=== PATIENT | female | born 1985 | race Caucasian/White ===

== ENCOUNTER 2021-11-18 14:13 | Outpatient (CLI) | payer OTHER, SELFPAY ==
--- OUTSIDE RECORDS SUMMARY | 2021-11-18 14:17 | XMS_ITS | Clinical Summary ---
:1985 Author Organization [employer] [facility] [place] [address] Care Team Providers Name Role Phone Benita Strickland Erika Primary Care Provider Allergies Active Allergy Reactions Severity Noted Date Comments Penicillins *Unknown - Childhood Rxn Medications Medication Sig Dispensed Refills Start Date End Date Status INTRAUTERINE DEVICE 1 Device 0 03/01/2010 Active (IUD) liothyronine (Cytomel) Take 1 Tablet (5 30 Tablet 0 05/25/2020 Active 5 mcg mcg) by mouth tabletIndications: once daily. Chronic fatigue, Fibromyalgia Phentermine HCl 30 mg Take 1 Capsule 30 Capsule 0 05/25/2020 Active capsuleIndications: (30 mg) by mouth Chronic fatigue, once daily. Fibromyalgia Active Problems Problem Noted Date H/O eating disorder 03/28/2020 Overview: bulemia with restriction Fatigue 03/28/2020 Fibromyalgia 03/28/2020 Family history of breast cancer. Sister had breast can cer at age 33. 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 Dysmenorrhea 03/02/2009 IUD (intrauterine device) in place 11/17/2007 Overview: Paraguard IUD Resolved Problems Problem Noted Date Resolved Date Back pain 03/09/2009 01/24/2014 Generalized pain 03/02/2009 01/24/2014 Other acne 01/19/2007 01/24/2014 Syncope and collapse 01/24/2014 Encounters Date Type Specialty Care Team Description 11/17/2021 Travel 11/17/2021 Nurse Triage Benita Strickland, DO [facility] from Last 3 Months Immunizations Name Administration Dates Next Due Human Papilloma Virus Vaccine 07/20/2007, 04/02/2007, 200607/21/2007 Influenza, IIV3 (Age >=3 years) 01/25/2008 MMR 05/15/1995 Meningococcal Vaccine 02/18/2000 Pneumococcal Poly,23-Valent (Pneumovax) 12/22/2003 Td (Age >=7 Years) 05/14/2005 Tdap 01/19/2007 Tuberculin (PPD) 03/15/2014 Family History Medical History Relation Name Comments Alcohol/Drug Father Arthritis Father Hyperlipidemia Father Hypertension Father Heart Disease Maternal Grandmother Allergies Mother Other Mother depression/migra heike Psychiatric illness Mother depression/a nxiety Other Paternal Grandmother Glaucoma Asthma Sister Cancer-breast Sister december 2010 daly d double mastectomy Psychiatric illness Sister Relation Name Status Comments Father Alive Maternal Grandmother Mother Alive Paternal Grandmother Sister Alive Social History Tobacco Use Types Packs/Day Years Used Date Light Tobacco Smoker Cigarettes 0.25 2 Quit: 0 10/18/2019 Smokeless Tobacco: Never Used Tobacco Cessation: Counseling Given: Yes Comments: smoked age 14-17 years old spo ratically Alcohol Use Standard Drinks/Week Comments Yes 0.8 (1 standard drink = 0.6 oz pure alco hol) rare Alcohol Habits Answer Date Recorded How often do you have a drink containing alcohol? Monthly or less 12/21/2019 How many drinks containing alcohol do you have on a 1 or 2 12/21/2019 typical day when you are drinking? How often do you have six or more drinks on one Never 12/21/2019 occasion? 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 Obstetrics History Para Term AB IAB SAB Ectopic Multiple Living Live Births 1 0 0 0 1 0 0 0 0 0 Date Outcome GA Total Labor/2nd/3rd Weight Sex Delivery Anes PTL Tammy A 1 A5 Name Clin Labor AB Last Filed Vital Signs Vital Sign Reading Time Taken Comments Blood Pressure 136/82 04/05/2020 2:45 PM BUDGET REPORT CLERK Pulse 80 04/05/2020 2:45 PM BUDGET REPORT CLERK Temperature 36.9 ??C (98.4 ??F) 12/21/2019 4:39 PM BUDGET REPORT CLERK Respiratory Rate 16 03/20/2017 5:13 PM BUDGET REPORT CLERK Oxygen Saturation 100% 04/05/2020 2:45 PM BUDGET REPORT CLERK Inhaled Oxygen Concentration - - Weight 72.6 kg (160 lb) 04/05/2020 2:45 PM BUDGET REPORT CLERK Height 172 cm (5' 7.72) 04/05/2020 2:45 PM BUDGET REPORT CLERK Body Mass Index 24.53 04/05/2020 2:45 PM BUDGET REPORT CLERK Plan of Treatment Health Maintenance Due Date Last Done Comments COVID-19 vaccine series (#1) 03/28/1984 Hepatitis C screening for age 0809/25/2001 18-79 Pneumococcal series for age 19-64 12/21/2004 12/22/2003 (2 - PCV) Tetanus booster 01/19/2017 01/19/2007, 05/14/2005 BMI (ht and wt on same day) for 04/05/2021 04/05/2020, 11/0 05/2019, age 18+ 09/22/2016, Additional history exists Depression screening for age 12+ 04/05/2021 04/05/2020, 01/2017, 07/05/2015 Influenza for age 9-49 10/17/2021 01/25/2008 Pap test for age 21-65 04/05/2025 04/05/2020, 04/05/2020, 04/02/2017, Additional history exists Tdap Completed 01/19/2007 Results Not on filefrom Last 3 Months Insurance Payer Benefit Plan / Subscriber ID Effective Dates Phone Addre ss Type Group SINA ANDINO [place] [id number] 2014-Presen [address] [place] [address] [employer] [id number] 2020-Prese [address] AETNA AETNA PREFERREDONE nt [place] [address] MEDICA[place] MEDICAID [id number] 2014-Prese [address] [place] [address] [phone] (Home) [facility] [place]AY[facility]REE [place]URG[place] [id number] Jules Jonas Personal/Fami Self 1985 [phone] (Home) JAYSHREE FORDE [id number] [employer] Occ Other 02/16/1902 [phone] LAURITA [address] [facility] [address] (Home) [address] [place] [address] [email or web address] Occ Employer 02/17/2000 [phone] [facility] 0 (Home) [place] [address] Care Teams Palletiser Operator Relationship Specialty Start Date End Date Benita Strickland DO PCP - General Internal Medicine 03/23/20 [address] [place] [address]
[2021-11-18 22:32] LABS: Albumin* 4.2 g/dL (3.3-5.0); Chloride* 104 mmol/L (96-114); Sodium* 136 mmol/L (135-149)
[2021-11-18 22:33] LABS: Potassium* 3.9 mmol/L (3.6-5.1)
[2021-11-18 22:35] LABS: Alanine Aminotransferase* 15 U/L (4-35); Alkaline Phosphatase* 76 U/L (40-150); Aspartate Amino Transferase* 23 U/L (12-35); Bilirubin Total* 0.6 mg/dL (0.1-1.5); Blood Urea Nitrogen* 9 mg/dL (5-24); Calcium* 9.3 mg/dL (8.4-10.6); Carbon Dioxide* 25 mmol/L (20-32); Creatinine* 0.8 mg/dL (0.5-1.5); Estimated Glomerular Filt Rate 97 ml/min; Glucose* 87 mg/dL (60-115); Lipase* 71 U/L (23-300); Total Protein* 6.8 g/dL (6.0-8.3)
[2021-11-20 10:44] LABS: CRP, High Sensitivity 2.1 mg/L (<=3.0)
== END 2021-11-18 14:14 | disposition home or self-care (01) ==
PROVIDERS: PCP Family Medicine; Visit Provider Nurse Practitioner Family
DX: R10.9 Unspecified abdominal pain (principal)
CPT/HCPCS: 80053; 83690; 86141

== ENCOUNTER 2021-11-27 09:32 | Outpatient (CLI) | payer OTHER, SELFPAY ==
--- OUTSIDE RECORDS SUMMARY | 2021-11-27 09:43 | XMS_ITS | Clinical Summary ---
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 COVID-19 Exposure Response Date Recorded In the [...] Comments Blood Pressure 136/82 04/05/2020 2:45 PM WELDING SUPERVISOR Pulse 80 04/05/2020 2:45 PM WELDING SUPERVISOR Temperature 36.9 ??C (98.4 ??F) 12/21/2019 4:39 PM WELDING SUPERVISOR Respiratory Rate 16 03/20/2017 5:13 PM WELDING SUPERVISOR Oxygen Saturation 100% 04/05/2020 2:45 PM WELDING SUPERVISOR Inhaled Oxygen Concentration - - Weight 72.6 kg (160 lb) 04/05/2020 2:45 PM WELDING SUPERVISOR Height 172 cm (5' 7.72) 04/05/2020 2:45 PM WELDING SUPERVISOR Body Mass Index 24.53 04/05/2020 2:45 PM WELDING SUPERVISOR Plan of Treatment Health Maintenance Due Date Last Done Comments COVID-19 vaccine series (#1) 03/28/1984 Hepatitis C screening for age 0809/25/2001 18-79 Pneumococcal series for age 19-64 12/21/2004 12/22/2003 (2 - PCV) Tetanus booster 01/19/2017 01/19/2007, 05/14/2005 BMI (ht and wt on same day) for 04/05/2021 04/05/2020, 05/2019, age 18+ 09/22/2016, Additional history exists Depression screening for age 12+ 04/05/2021 04/05/2020, 01/2017, 07/05/2015 Influenza for age 9-49 10/17/2021 01/25/2008 Pap test for age 21-65 11/21/2026 11/21/2021, 04/05/2020, 04/05/2020, Additional history exists Tdap Completed 01/19/2007 Procedures Procedure Name Priority Date/Time Associated Diagnosis Comme nts LAB TRACKING EVENT Routine 11/21/2021 1:50 PM CDT HPV THIN PREP Routine 11/21/2021 1:50 PM Results for this CDT procedure are i n the results section. from Last 3 Months Results LAB TRACKING EVENT (11/21/2021 1:50 PM CDT) Specimen Anatomical Collection Method Collection Time Receive d Time (Source) Location / / Volume Laterality Other (Other) Client Collect / 11/21/2021 1:50 PM 08/2021 4:45 Unknown CDT PM CDT Darcy Estevez MD LAB BILL ONLY Performing Organization Address City/State/ZIP Code Phon e Number [facility] [address] [place] [address] LABORATORY-CENTRAL 2000 LABORATORY HPV HIGH RISK (11/21/2021 1:50 PM CDT) Analysis Performed At Patho logist Time Signature TYPE 16 Negative Negative 11/26/2021 [facility] [facility] [employer] [facility]) 2:58 PM CDT LABORATORY-[facility] TRAL LABORATORY TYPE 18 Negative Negative 11/26/2021 [facility] 2:58 PM CDT LABORATORY-[facility] TRAL LABORATORY OTHER HIGH Negative Negative 11/26/2021 [facility] RISK TYPES 2:58 PM CDT LABORATORY-[facility] TRAL LABORATORY Specimen Anatomical Collection Method Collection Time Receive d Time (Source) Location / / Volume Laterality Other 11/21/2021 1:50 PM 2 (Cervical/Vagina CDT 10:34 AM CD T l) Narrative [facility] LABORATORY-CENTRAL LABORAT ORY - 11/26/2021 2:58 PM CDT HPV types 16, 18, 31, 33, 35, 39, 45, 51, 52, 56, 58, 59, 66 and 68 DNA were undetectable or below the pre-set threshold. Methodology: Reanna Maribel 4800 HPV Test Darcy Estevez MD MICROBIOLOGY Performing Organization Address City/[facility]/ZIP Code Phon e Number [facility] [address] [place] [address] LABORATORY-CENTRAL 2000 LABORATORY from Last 3 Months Insurance Payer Benefit Plan / Subscriber ID Effective Dates Phone Addre ss Type Group [facility] [id number] 2014-Presen [address] [place] [address] [employer] [id number] 2020-Prese [address] AETNA [place] [address] MED[place]ID [place] [id number] 2014-Prese [address] [place] [address] [phone] (Home) [facility] [id number] Jules Jonas Personal/Fami Self 1985 [phone] (Home) JAYSHREE FODRE [address] [employer] Occ Other 02/16/1902 [phone] LA[address] [facility] [address] (Home) [address] [place] [address] [employer] Occ Employer 02/17/2000 [phone] [facility] 0 (Home) [place] [address] Care Teams Non Ferrous Material Handler Relationship Specialty Start Date End Date Benita Strickland, PCP - General Internal Medicine 03/23/20 100 [facility] JAYSHREE Arceo [address]
--- NOTE | 2021-11-27 09:45 | CRLHL7_ITS ---
For Patients: As a result of the Century Cures Act, medical imaging exams and procedure reports are released immediately into your electronic medical record. You may view this report before your referring provider. If you have questions, please contact your health care provider. INDICATION: abdomen pain COMPARISON: none TECHNIQUE: Real time zheng scale imaging and color Doppler analysis was performed of the right upper quadrant. FINDINGS: The patient`s liver is of normal size and has uniform echogenicity. There is a normal appearance of the hepatic IVC and proximal abdominal aorta. There is no evidence of ascites. The gallbladder is of normal size and there is no evidence of intraluminal stones or sludge. The gallbladder wall measures 1 mm in thickness. The common bile duct is of normal size and measures 3 mm in diameter at the level of the miranda hepatis. The pancreas appears normal. There is no evidence of a stone or hydronephrosis within the right kidney. The right kidney measures 11.5 cm in length. IMPRESSION: Normal right upper quadrant ultrasound. Dictated by Juan Luis Engel MD @ 11/27/2021 10:42:36 AM (Electronically Signed)
== END 2021-11-27 09:33 | disposition home or self-care (01) ==
LOC: US 09:32
PROVIDERS: PCP Family Medicine; Visit Provider Family Medicine
DX: R10.9 Unspecified abdominal pain (principal)
CPT/HCPCS: 76705

== ENCOUNTER 2022-06-18 11:26 | Outpatient (CLI) | payer OTHER, SELFPAY | END 2022-06-18 11:27 | disposition home or self-care (01) | LOC: NFLDREF 06-19 16:13 | PROVIDERS: PCP Family Medicine; Referring Provider Family Medicine; Visit Provider Family Medicine | DX: Z79.899 Other long term (current) drug therapy (principal); G40.209 Localization-related (focal) (partial) symptomatic epilepsy and epileptic syndromes with complex partial seizures, not intractable, without status epilepticus | CPT/HCPCS: 85027 ==

== ENCOUNTER 2023-06-08 13:02 | Outpatient (CLI) | payer OTHER, SELFPAY ==
--- OUTSIDE RECORDS SUMMARY | 2023-06-08 13:25 | XMS_ITS | Clinical Summary ---
Author Name Unknown Organization [facility] Address [place], [place] [address] Care Team Providers Care Full Stack Software Developer Name Role Phone Benita Strickland Primary Care Provider Allergies Active Allergy Reactions Criticality Noted Date Comments Penicillins *Unknown - Childhood Rxn Medications Medication Sig Dispensed Refills Start Date End Date Status INTRAUTERINE DEVICE (IUD) 1 Device 0 03/01/2010 Active liothyronine (Cytomel) 5 mcg tabletIndications:Ch ronic fatigue,Fibromyalgia Take 1 Tablet (5 mcg) by mouth once daily. 30 Tablet 05/25/2020 Active Phentermine HCl 30 mg capsuleIndications:C hronic fatigue,Fibromyalgia Take 1 Capsule (30 mg) by mouth once daily. 30 Capsule 05/25/2020 Active Active Problems Problem Noted Date Diagnosed Date H/O eating disorder 03/28/2020 Overview: bulemia with restriction Fatigue 03/28/2020 Fibromyalgia 03/28/2020 Family history of breast can cer. Sister had breast cancer at age 33. 02/28/2016 Leukopenia 01/22/2015 Nonintractable complex partial epilepsy 01/20/20 15 Dysmenorrhea 03/02/2009 IUD (intrauterine device) in place 11/17/2007 Overview: Paraguard IUD Resolved Problems Problem Noted Date Diagnosed Date Resolved Date Back pain 03/09/2009 01/24/2014 Generalized pain 03/02/2009 01/24/2014 Other acne 01/19/2007 01/24/2014 Syncope and collapse 014 Immunizations Name Administration Dates Next Due Human Papilloma Virus Vaccine 07/20/2007, 008,01/19/2007 07/21/2007 Influenza, IIV3 (Age >=3 years) 01/25/2008 MMR 05/15/1995 Meningococcal Vaccine 02/18/2000 Pneumococcal Poly,23-Valent (Pneumovax) 12/22/19 04 Td (Age >=7 Years) 05/14/2005 Tdap 01/19/2007 Tuberculin (PPD) 03/15/2014 Family History Medical History Relation Name Comments Alcohol/Drug Father Arthritis Father Hyperlipidemia Father Hypertension Father Heart Disease Maternal Grandmother Allergies Mother Other Mother depression/migr aines Psychiatric illness Mother depressi on/anxiety Other Paternal Grandmother Glaucom a Asthma Sister Cancer-breast Sister december 2010 had double mastectomy Psychiatric illness Sister Relation Name Status Comments Father Alive Maternal Grandmother Mother Alive Paternal Grandmother Sister Alive Social History Tobacco Use Types Packs/Day Years Used Date Smoking Tobacco: Light Smoker Cigarettes 0.3 2 Started: 018; Last attempted to quit: 10/18/2019 Smokeless Tobacco: Never Tobacco Cessation:Counseling Given: Yes Comments:smoked age 14-17 years old sporatically Alcohol Use Standard Drinks/Week Comments Yes 0.8 (1 standard drink = 0.6 oz p ure alcohol) rare PHQ-2 Answer Date Recorded PHQ-2 TOTAL SCORE 1 04/05/2020 Social Connections Answer Date Recorded Frequency of Communication with Friends and Fami ly Not on file 02/12/2021 Financial Resource Strain Answer Date R ecorded Difficulty of Paying Living Expenses Not on file 02/12/2021 Difficulty of Paying Living Expenses Not on file 02/12/2021 Sex and Gender Information Value Date Recorded Sex Assigned at Female 03/26/2020 8:01 PM WEB CONTENT SPECIALIST Gender Identity Female 03/26/2020 8:01 PM WEB CONTENT SPECIALIST Sexual Orientation Straight 03/26/2020 8: 01 PM WEB CONTENT SPECIALIST Obstetrics History Para Term AB IAB SAB Ectopic Multiple Livin g Live Births 1 0 0 0 1 0 0 0 0 0 Date Outcome GA Total Labor Labor/2nd/3rd Weight Sex Delivery Anes PTL Tammy A1 A5 Name Cl in AB Last Filed Vital Signs Vital Sign Reading Time Taken Comments Blood Pressure 136/82 04/05/2020 2:45 PM WEB CONTENT SPECIALIST Pulse 80 04/05/2020 2:45 PM WEB CONTENT SPECIALIST Temperature 36.9 ??C (98.4 ??F) 12/21/2019 4:39 PM CS T Respiratory Rate 16 03/20/2017 5:13 PM WEB CONTENT SPECIALIST Oxygen Saturation 100% 04/05/2020 2:45 PM WEB CONTENT SPECIALIST Inhaled Oxygen Concentration - - Weight 72.6 kg (160 lb) 04/05/2020 2:45 PM WEB CONTENT SPECIALIST Height 172 cm (5' 7.72) 04/05/2020 2:45 PM WEB CONTENT SPECIALIST Body Mass Index 24.53 04/05/2020 2:45 PM WEB CONTENT SPECIALIST Plan of Treatment Health Maintenance Due Date Last Done Comments HIV for age 15-65 09/25/1998 Hepatitis C screening for age 18-79 09/25/2001 Tetanus booster 01/19/2017 01/19/2007, 05/14/2005 BMI (ht and wt on same day) for age 18+ 04/05/2021 04/05/2020, 12/21/2019, 09/22/2016, Additional history exists Depression screening for age 12+ 04/05/2021 04/05/2020, 02/28/2016, 07/05/2015 COVID-19 vaccine series ( season) 2022 Influenza for age 9-49 10/18/2023 01/25/2008 Pap test for age 21-65 11/21/2026 , 11/21/2021, 04/05/2020, Additional history exists Pneumococcal series for age 6-64 Aged Out 12/22/2003 No longer eligible based on patient's age to complete this topic Tdap Completed 01/19/2007 Procedures Procedure Name Priority Date/Time Associated Diagnosis Comments HPV THIN PREP Routine 11/21/2021 1:50 PM CDT from Last 3 Months or Most Recently Relevant to Health Maintenance Results * HPV HIGH RISK (11/21/2021 1:50 PM CDT) TYPE 16 Negative Negative 11/26/2021 2:58 PM CDT [facility] LABORATORY-[facility] TRAL LABORATORY TYPE 18 Negative Negative 11/26/2021 2:58 PM CDT [facility] LABORATORY OTHER HIGH RISK TYPES Negative Negative 11/26/2021 2:58 PM CDT [facility] LABORATORY-[facility] TRAL LABORATORY Other (Cervical/Vagina l) 11/21/2021 1:50 PM CDT 11/25/2021 10:34 AM CDT Narrative [facility] LABORATORY-CENTRAL LABORATORY - 11/26/2021 2:58 PM CDT HPV types 16, 18, 31, 33, 35, 39, 45, 51, 52, 56, 58, 59, 66 and 68 DNA were undetectable or below the pre-set threshold. Methodology: Reanna Maribel 4800 HPV Test Darcy Estevez MD MICROBIOLOGY [facility] EpiEP [facility]-CENTRAL LABORATORY [address] [place] [address], from Last 3 Months or Most Recently Relevant to Health Maintenance Care Teams Full Stack Software Developer Relationship Specialty Start Date End Date Benita Strickland DO [address] [place] [address] [employer] EULA JAYSHREE [address] PCP - General Internal Medicine 03/23/20
== END 2023-06-08 13:03 | disposition home or self-care (01) ==
PROVIDERS: PCP Family Medicine; Visit Provider Family Medicine
DX: R53.83 Other fatigue (principal)
CPT/HCPCS: 80053; 82306; 84443; 85027